=== PATIENT | male | born 1955 | race Caucasian/White ===

== ENCOUNTER → 2024-01-02 15:57 | Outpatient (REF) | payer MEDICARE, OTHER, SELFPAY | LOC: RAD 15:57 | PROVIDERS: ATTENDING PHYSICIAN Family Medicine; REFERRING PHYSICIAN Internal Medicine | DX: R15.2 Fecal urgency (principal); R15.9 Full incontinence of feces | CPT/HCPCS: 74019 ==

== ENCOUNTER → 2024-04-14 15:46 | Outpatient (REF) | payer MEDICARE, OTHER, SELFPAY | LOC: RCS 15:46 | PROVIDERS: ATTENDING PHYSICIAN Internal Medicine Cardiovascular Disease; FAMILY PHYSICIAN Family Medicine | DX: I77.810 Thoracic aortic ectasia (principal) | CPT/HCPCS: 93306 ==

== ENCOUNTER → 2024-05-18 19:40 | Outpatient (REF) | payer MEDICARE, OTHER, SELFPAY | LOC: MRI 3T 19:40 | PROVIDERS: ATTENDING PHYSICIAN Specialist; FAMILY PHYSICIAN Family Medicine | DX: R97.20 Elevated prostate specific antigen [PSA] (principal); R36.1 Hematospermia | CPT/HCPCS: 72197; A9575 ==

== ENCOUNTER 2024-12-09 15:54 | Emergency (ER) | payer MEDICARE, OTHER, SELFPAY ==
[2024-12-09 15:58] VITALS: BP 133/84
[2024-12-09 16:16] LABS: % Basophils 0.6 % (0-2); % Eosinophils 1.9 % (0-6); % Immature Granulocytes 0.3 % (0-0.5); % Lymphocytes 35.6 % (20.5-51.1); % Monocytes 9.2 % (1.7-9.3); % Neutrophils 52.4 % (42.2-75.2); Absolute Basophils 0.1 10^3/uL (0-0.2); Absolute Eosinophils 0.2 10^3/uL (0-0.7); Absolute Lymphocytes 2.8 10^3/uL (1.2-3.4); Absolute Monocytes 0.7 10^3/uL (0.1-0.6); Absolute Neutrophils 4.1 10^3/uL (1.4-6.5); Hematocrit 41.9 % (39.0-52.0); Hemoglobin 14.8 g/dL (13.0-18.0); Mean Corp Hgb Conc. 35.3 g/dL (33.0-37.0); Mean Corpuscular Hgb 29.9 pg (27.0-31.0); Mean Corpuscular Volume 84.6 fL (80.0-94.0); Mean Platelet Volume 10.5 fL (7.4-10.4); Nucleated Red Blood Cells % 0 % (-); Platelet Count 215 10^3/uL (130-400); Red Blood Cell Count 4.95 10^6/uL (4.70-6.10); Red Cell Dist. Width 12.8 % (11.5-14.5); White Blood Cell Count 7.9 10^3/uL (4.8-10.8)
[2024-12-09 16:31] LABS: ALT (SGPT) 39 U/L (0-50); AST (SGOT) 36 U/L (17-59); Albumin 4.3 g/dl (3.5-5.0); Alkaline Phosphatase 42 U/L (38-126); Blood Urea Nitrogen 22 mg/dl (9-20); Calcium 9.7 mg/dl (8.4-10.2); Carbon Dioxide 22 mmol/L (22-30); Chloride 110 mmol/L (98-107); Glucose 88 mg/dl (70-99); Potassium 4.5 mmol/L (3.5-5.1); Sodium 142 mmol/L (135-145); Total Bilirubin 0.9 mg/dl (0.2-1.3); eGFR > 60.00
--- NOTE | 2024-12-09 18:45 | ED.GENMED ---
History of Present Illness
General
Chief Complaint: Rectal Bleeding
Source: patient
Exam Limitations: none
Time Seen by Provider: 12/09/24 18:43
History of Present Illness
History of Present Illness:
See MDM
Past History
Past History
ED Past Medical History: Hypercholesterolemia
ED Past Surgical History: Other (Hernia repair)
Phy Exam
Physical Exam
Physical Exam:
See MDM
Course
Orders/Labs/Results
Orders:
Orders
12/09/24 16:05
Complete Blood Count/With Diff Urgent
Comprehensive Metabolic Panel Urgent
Abnormal Lab Results
12/09/24
16:05
MPV 10.5 H fL
(7.4-10.4)
Absolute Monos (auto) 0.7 H 10^3/uL
(0.1-0.6)
Chloride 110 H mmol/L
(98-107)
BUN 22 H mg/dl
(9-20)
12/09/24 16:05
12/09/24 16:05
Vital Signs
Initial and Last Documented VS:
Initial Vital Signs
Temp Pulse Resp BP Pulse Ox
98.3 F 69 18 133/84 98
12/09/24 15:58 12/09/24 15:58 12/09/24 15:58 12/09/24 15:58 12/09/24 15:58
Last Documented Vital Signs
Temp Pulse Resp BP Pulse Ox
98.3 F 69 18 133/84 98
12/09/24 15:58 12/09/24 15:58 12/09/24 15:58 12/09/24 15:58 12/09/24 15:58
MDM/Problems Addressed
Differential Diagnosis Includes:
HPI and MDM Narrative:
69-year-old male presenting for evaluation of intermittent lower GI bleeding. Over the past few days, patient has noted bright red bleeding when he defecates. It resolves quickly. He denies any abdominal pain or fevers. He called his
er registrar and the front office associate sent him to the emergency department for evaluation
On my exam, he is a soft and nontender abdomen. No obvious external hemorrhoid or fissure noted on exam.
I did evaluate his prior records. He had a colonoscopy in 2021 showing evidence of diverticulosis. Patient states he is somewhat concerned that GI bleeding could mean colon cancer. We discussed low utility of CT scan as this is not a screening
exam for colon cancer. We discussed his symptoms are less likely related to malignancy given no evidence of malignancy in 2021. However, we discussed outpatient follow-up with GI to rediscuss colonoscopy
We discussed admission versus discharge. I did offer admission for hemoglobin trending and GI evaluation. Given that he is stable and not on blood thinners, I indicated that they may not perform colonoscopy inpatient. Given that he does not have
a brisk bleed, he is not a candidate for CT angiogram
With this information, patient states he feels comfortable going home. We discussed strict return precaution. He is going to reach out to GI tomorrow
Physical exam
General: Well appearing and non-toxic
HEENT: protecting airway
Neck: appears supple
CV: No evidence of cyanosis
Resp: No accessory muscle use
Abd: Non-distended. Soft and nontender
Rectal: No fissure or external hemorrhoid
Extremities: No deformities
Neuro: alert
Psych: Normal affect
Skin: Intact
Problems Addressed including Acute and Chronic Conditions affecting care:
1. Lower GI bleeding
Acuity: acute
Prognosis: stable
Details: We discussed that symptoms are likely related to diverticulosis. I did offer admission patient states he feels comfortable going home understands strict return precautions
Differential Diagnosis (but not limited to): Diverticulosis, internal hemorrhoid
Testing considered: CT abdomen/pelvis but he has no tenderness
Drug therapy (if applicable): OTC meds, please see d/c instruction regarding Rx drugs
Amount and/or Complexity of Data Reviewed
Clinical info obtained from: Patient
External data reviewed: N/A
Labs I independently reviewed (but not limited to): Hemoglobin stable
Radiology: N/A
Pulse Ox: not hypoxic
EKG independently reviewed: N/A
Hardwood Floor Finisher: N/A
Critical Care: N/A
Risk of Complication:
Social Determinants of health: Good social support
Discussed with other providers: N/A
Escalation of Care includes Admit/Obs: After being observed in the Emergency Department, pt stable for discharge.
Occasional wrong word or 'sound a like' substitutions may have occurred due to the inherent limitations of voice recognition software. Read the chart carefully and recognize, using context, where substitutions have occurred.
*Critical Care Note
Total Time (30-74mins, 75-104mins- exclusive of procedures): Not Applicable
ED Attending Note
-
Portions of this chart may have been created with voice recognition software.� Occasional wrong word or��sound alike� substitutions may have occurred due to the inherent limitations of voice recognition software.
Discharge Plan
Departure
Patient Disposition: Home (Routine Discharge)
Date of Disposition: 12/09/24
Time of Disposition: 19:06
Patient with high blood pressure during this ER visit?: No
Discharge Problem:
Acute lower GI bleeding
Instructions: Gastrointestinal Bleeding (DC)
Prescriptions:
No Action
Theragen Tablet
1 tab PO DAILY
ezetimibe-simvastatin 10-40 mg Tablet
1 tab PO DAILY
Referrals:
Eduardo Parsons MD [Family Provider] -
Activity Restrictions/Additional Instructions:
As we discussed, your bleeding is likely related to your known diverticulosis or perhaps an internal hemorrhoid. If you develop any pain or fevers, please return immediately. If you develop any bleeding that does not resolve, please return
immediately. Please call your er registrar tomorrow for expedited follow-up. Please relay that you were seen in the emergency department for lower GI bleeding, presumed to be related to your diverticulosis. They may want to set up another
colonoscopy.
Please return for any worsening symptoms.
You may return at any time if you have further concerns.
Thank you for choosing [facility].
Interventions
Interventions:
*Risk Screen - Suicide Last Done: 12/09/24 15:58
*General Assessment Last Done: 12/09/24 15:58
*Neglect/Abuse Screening Last Done: 12/09/24 15:58
Discharge Date and Time
Print Language: CHINESE
[2024-12-09 19:22] VITALS: BMI 31.0
== END 2024-12-09 19:31 | disposition home or self-care (01) ==
LOC: EMR 15:54
PROVIDERS: Emergency Medicine; EMERGENCY PHYSICIAN Student in an Organized Health Care Education/Training Program; FAMILY PHYSICIAN Family Medicine
DX: K92.2 Gastrointestinal hemorrhage, unspecified (principal); E78.00 Pure hypercholesterolemia, unspecified
CPT/HCPCS: 99283; 80053; 85025

== ENCOUNTER 2025-01-17 06:19 | Day surgery (SDC) | payer MEDICARE, OTHER, SELFPAY | END 2025-01-17 12:02 | disposition home or self-care (01) | LOC: GI 06:19 | PROVIDERS: ATTENDING PHYSICIAN Internal Medicine; FAMILY PHYSICIAN Registered Nurse | DX: K92.1 Melena (principal); K57.30 Diverticulosis of large intestine without perforation or abscess without bleeding; K64.8 Other hemorrhoids; D12.2 Benign neoplasm of ascending colon | CPT/HCPCS: 45385; 88305 ==